=== PATIENT | female | born 1975 | race Caucasian/White ===

== ENCOUNTER 2018-11-28 12:35 | Inpatient (IN) | payer MEDICAID ==
[~2018-11-28] VITALS: Ht 167.6 cm; Wt 74.5 kg
[2018-11-28 13:09] VITALS: Ht 167.6 cm; Wt 74.5 kg
--- NOTE | 2018-11-28 13:29 | NUR ---
PT RECEIVED AWAKE AND ALERT, AMBULATORY FROM MAIN TRIAGE. UA CUP HAS BEEN PROVIDED BY BENCH MOLDER.
--- NOTE | 2018-11-28 14:00 | NUR ---
MSE BY DR. RODRIGUEZ.
[2018-11-28 14:21] LABS: BASOPHIL % 0.1 % (0-2); PLATELET COUNT 322 x10^3mcL (130-400); RED CELL DISTRIBUTION WIDTH 13.2 % (11.5-14.5)
[2018-11-28 14:33] LABS: CALCIUM 8.8 mg/dL (8.5-10.1); CARBON DIOXIDE 29.5 mmol/L (21-32); CHLORIDE SERUM 103 mmol/L (98-107); CREATININE SERUM 0.6 mg/dL (0.6-1.0); GFR1 > 60 mL/min; GLUCOSE SERUM 106 mg/dL (74-106); SODIUM SERUM 141 mmol/L (136-145)
--- NOTE | 2018-11-28 14:34 | NUR ---
PATIENT HAS BEEN MEDICATED. AND LABS SENT
[2018-11-28 14:37] LABS: ALKALINE PHOSPHATASE 69 U/L (46-116); ALT/SGPT 68 U/L (14-59); AST/SGOT 101 U/L (15-37); BILIRUBIN TOTAL 0.3 mg/dL (0.20-1.00); LIPASE 103 IU/L (73-393); TOTAL PROTEIN, SERUM 7.9 g/dL (6.4-8.2)
--- NOTE | 2018-11-28 15:21 | NUR ---
PT IS CURRENTLY LAYING ON THE BED, USING HER CELLPHONE. PATIENT IS NOW PENDING US. LABS NOTED. NS BOLUS CONTINOUS.
--- NOTE | 2018-11-28 15:28 | NUR ---
PT TO US
--- NOTE | 2018-11-28 15:58 | NUR ---
PATIENT IS NOW BACK FROM US. PATIENT IS PENDING ADMISSION FOR CHOLELITHIASIS AND ELEVATED LIVER ENZYME
--- NOTE | 2018-11-28 16:30 | NUR ---
VITALS REMAIN WNL. PATIENT REFUSING MORPHINE ADMINISTRATION
[2018-11-28 16:55] LABS: T3 TOTAL 1.13 ng/mL
[2018-11-28 16:56] LABS: FREE T4 0.97 ng/dL (0.76-1.46); FREE THYROXINE INDEX 2.8 ug/dL (1.4-4.5); T4(THYROXINE) 7.5 ug/dL (4.7-13.3)
--- NOTE | 2018-11-28 17:00 | NUR ---
RN REPORT GIVEN TO ZIYAD, RN OVER ON MED/SURG FLOOR. PATIENT REMAINS AWAKE AND ALERT, NO NAUSEA/VOMITING WHILE UNDER MY CARE. PATIENT'S IV REMAINS INTACT AND PATENT. PT HAS BEEN NPO WHILE UNDER MY CARE. PT HAS BEEN REFUSING ANY PAIN MEDICINE AFTER TORADOL ADMINISTRATION.
[2018-11-28 17:11] LABS: CHOLESTEROL/HDL RATIO 2.8; PHOSPHOROUS 3.8 mg/dL (2.5-4.9)
[2018-11-28 17:59] VITALS: BP 128/73
--- NOTE | 2018-11-28 18:01 | NUR ---
RECEIVED PT FROM ED VIA [employer]. ORIENTED PT TO ROOM AND SURROUNDINGS. IV NOTED TO LAC PATENT AND INTACT. MEDICATED PT WITH PRN PAIN AND ANTIEMETIC MEDICATION. INSTRUCTED PT ON THE USE OF CALL LIGHT FOR ASSISTANCE. BED IN LOWEST POSITION AND SIDE RAILS UPX2
--- NOTE | 2018-11-28 19:56 | NUR ---
COMPLAINED OF ABDOMINAL PAIN RATED AT 6/10 MEDICATED PRN. WILL CHECK EFFECTIVENESS.
[2018-11-28 20:00] VITALS: BP 112/61
--- NOTE | 2018-11-28 20:18 | NUR ---
PATIENT RECEIVED IN BED AWAKE,ALERT AND ORIENTED X4, GUYANESE SPEAKING BUT ABLE TO COMMUNICATE NEEDS WITH LITTLE CROATIAN AND GESTURING. COMPLAINT OF ABDOMINAL PAIN POINTED AT EPIGASTRIC AREA, RATE AT 6/10 MEDICATED PRN, MADE COMFORTABLE IN BED AND WILL MONITOR EFFECTIVENESS. DENIED N/V/D. IV SITE NO SIGN OF INFILTRATION. SAFETY PRECAUTIONS MAINTAINED. WILL CONTINUE TO MONITOR.
--- NOTE | 2018-11-28 20:56 | NUR ---
PAIN STATED PAIN TO EPIGASTRIC AREA IS SLOWLY SUBSIDING RATED AT 3/10. WILL CONTINUE TO MONITOR.
--- NOTE | 2018-11-28 21:11 | NUR ---
SCHEDULED MEDS ADMINISTERED PER ORDERED. PATIENT INFORMED ABOUT ITS PURPOSE AND ACTIONS PRIOR.
--- NOTE | 2018-11-28 22:23 | NUR ---
PATIENT TRANSFERRED TO ROOM 226A.
--- NOTE | 2018-11-29 00:05 | NUR ---
COMPLAINED OF EPIGASTRIC PAIN RATED AT 6/10 MEDICATED PRN.
--- NOTE | 2018-11-29 01:00 | NUR ---
CHECKED EFFECTIVENESS OF PAIN MEDS GIVEN, AWAKEN WHEN NAME CALLED, STATED PAIN AT 2/10 BEARABLE. IV SITE NO SIGN OF INFILTRATION. WILL CONTINUE TO MONITOR.
--- NOTE | 2018-11-29 03:00 | NUR ---
SLEEPING NO DISTRESS. WILL CONTINUE TO MONITOR.
[2018-11-29 05:45] VITALS: BP 102/61
--- NOTE | 2018-11-29 05:56 | NUR ---
COMPLAINED OF ABDOMINAL PAIN LOCATED AT EPIGASTRIC ARE, RATED AT 6/10 MEDICATED PRN.
--- NOTE | 2018-11-29 06:22 | NUR ---
PATIENT HAD A RESTFUL NIGHT, WAS MEDICATED X3 FOR COMPLAINT OF ABDOMINAL PAIN WITH RELIEF. COMPLIANT WITH NPO ORDER. IV SITE NO SIGN OF INFILTRATION, ASSISTED OOB TO THE BR VOIDED WITHOUT DIFF. SAFETY PRECAUTIONS OBSERVED AND MAINTAINED. WILL ENDORSE CONTINUITY OF CARE TO INCOMING NURSE.
[2018-11-29 06:42] LABS: BASOPHIL % 0.2 % (0-2); PLATELET COUNT 277 x10^3mcL (130-400); RED CELL DISTRIBUTION WIDTH 13.3 % (11.5-14.5)
[2018-11-29 06:45] LABS: microscopic required? NO
[2018-11-29 07:05] LABS: CALCIUM 8.4 mg/dL (8.5-10.1); CARBON DIOXIDE 26.2 mmol/L (21-32); CHLORIDE SERUM 107 mmol/L (98-107); CREATININE SERUM 0.7 mg/dL (0.6-1.0); GFR1 > 60 mL/min; GLUCOSE SERUM 102 mg/dL (74-106); POTASSIUM SERUM 4.1 mmol/L (3.5-5.1); SODIUM SERUM 142 mmol/L (136-145)
--- NOTE | 2018-11-29 07:36 | NUR ---
BEDSIDE HANDS OFF AND REPORT GIVEN TO INCOMING NURSE KRISTINE.
[2018-11-29 07:43] LABS: AMPHETAMINE QUAL UR NONE DETECTED (See below)
--- NOTE | 2018-11-29 07:50 | NUR ---
RECEIVED PATIENT RESTING IN BED. A/OX4. PATIENT C/O DIZZINESS WHEN OPENING EYES BUT STATES SHE DOES NOT FEEL DIZZY ANYMORE. DENIES PAIN AT THIS TIME. PATIENT ABLE TO AMBULATE INDEPENDENTLY, STEADY GAIT. NS IV INFUSING TO LAC AT 100 ML/HR, IV SITE CDI, NO ERYTHEMA, EDEMA OR PAIN AT SITE. INSTRUCTED PATIENT TO CALL FOR ASSISTANCE WHEN NEEDED, CALL LIGHT WITHIN REACH. BED IN LOW POSITION, SIDE RAILS X2, FOR SAFETY PRECAUTION. WILL CONTINUE TO MONITOR FOR CHANGES.
[2018-11-29 08:32] LABS: UA SPECIFIC GRAVITY >=1.030 (1.005-1.035); urine erythrocyte NEGATIVE (NEGATIVE)
[2018-11-29 10:02] VITALS: BP 109/71
--- NOTE | 2018-11-29 12:30 | NUR ---
PATIENT WENT DOWN TO OR. IV TO LAC SALINE LOCK, CDI AND PATENT.
--- NOTE | 2018-11-29 16:31 | NUR ---
PATIENT ARRIVED FROM OR VIA GURNEY. VITAL SIGNS STABLE; BP:122/77 HR: 82 O2: 99% RR:16 TEMP. 97.7. 4 INCISIONS NOTED TO ABDOMEN, 3 OF THE INCISION RANJANA, 1 INCISION WITH SUTURE AND COVERED WITH BANDAID. WILL CONTINUE TO MONITOR PATIENT.
--- NOTE | 2018-11-29 17:00 | NUR ---
PATIENT APPEARRED TO BE GASPING FOR AIR, PATIENT STATES TROUGHT FELT INFLAMMED DR MIRANDA NOTIFIED. DR MIRANDA ORDER FOR RT PROTOCOL. PATIENT OXYGEN INCREASED TO 4L, PATIENT FELT SOME RELIEF. WILL CONTINUE TO MONITOR. PATIENT OX IS 99% AT THIS TIME.
[2018-11-29 17:15] VITALS: BP 140/71
--- NOTE | 2018-11-29 18:42 | NUR ---
PATIENT C/O NAUSEA AND VOMITTING, MEDICATED PATIENT WITH ZOFRAN PER PROTOCOL. NO ACUTE CHANGES NOTED, PATIENT STABLE. NS IV TO LAC SALINE LOCK, CDI. NO ERYTHEMA, EDEMA, OR PAIN AT SITE. WILL ENDORSE REPORT TO NIGHT NURSE.
--- NOTE | 2018-11-29 19:45 | NUR ---
RECEIVED PT RESTING IN BED, ALERT AND ORIENTED X4, DENIES LUKE, DIZZINESS AT THIS TIME. REPORTS FEELING NAUSEOUS, ZOFRAN LAST GIVEN AT 1842. PT REPORTS ABD PAIN TO SX SITE, WILL MEDICATE PER ORDER; PT IS S/P LAP ESEQUIEL TODAY WITH X4 SM. SX INCISIONS NOTED TO ABD. X3 CLOSED WITH DERMABOND AND RANJANA, X1 CLOSED WITH SUTURES AND COVERED WITH BANDAID. PT IS MED/SURG, DENIES CHEST DISCOMFORT AT THIS TIME. FOUND PT ON 2L VIA NC, BREATHING IS E/U, PT DENIES SOB AT THIS TIME. IV NOTED TO LAC, INFUSING IVF ORDERED. IV IS PATENT AND INTACT. NO SWELLING, REDNESS NOTED TO AREA. ALL SAFETY AND COMFORT MEASURES MAINTAINED. CALL LIGHT AND PESONAL ITEMS IN REACH. WILL CONTINUE TO MONITOR.
--- NOTE | 2018-11-29 20:30 | NUR ---
PT ASSISTED TO RESTROOM, FIRST POST SURGICAL VOID. PT CONTINUING TO FEEL NAUSEOUS AND DIZZY AT THIS TIME. EMESIS BAG PROVIDED. DAUGHTERS AT BEDSIDE. WILL CONTINUE TO MONITOR.
[2018-11-29 20:44] VITALS: BP 124/68
--- NOTE | 2018-11-29 21:05 | NUR ---
PT MEDICATED WITH TORADOL FOR PAIN, RESTING COMFORTABLY IN BED AT THIS TIME. NC IN PL, IVF INFUSING PER MD ORDER. ALL SAFETY MEASURES MAINTAINED. CALL LIGHT IN REACH. WILL CONTINUE TO MONITOR.
--- NOTE | 2018-11-29 23:51 | NUR ---
PT RESTING COMFORTABLY AT THIS TIME. REPORTS PAIN HAS SUBSIDED TO 3/10 AT THIS TIME. NO DISTRESS NOTED. SAFETY AND COMFORT MEASURES MAINTAINED. CALL LIGHT IN REACH. WILL CONTINUE TO MONITOR.
[2018-11-30 05:09] VITALS: BP 102/61
--- NOTE | 2018-11-30 06:39 | NUR ---
PT RESTED INTERMITTENTLY DURING THE NIGHT, ASSISTED WITH AMBULATION TO AND FROM RESTROOM TO BED, PT TOLERATING OK AT THIS TIME. PT CONTINUES TO HAVE MILD-MODERATE PAIN AND CONTINUING TO FEEL NAUSEOUS. SHE REPORTS BURPING, BUT NOT PASSING GAS AT THIS TIME. IVF CONTINUING TO INFUSE PER MD ORDER, IV SITE REMAINS PATENT AND INTACT. ABD SX INCISIONS REMAIN INTACT. ALL SAFETY AND COMFORT MEASURES MAINTAINED. CALL LIGHT IN REACH. WILL ENDORSE CARE TO AM NURSE AND CONTINUE TO MONITOR.
--- NOTE | 2018-11-30 07:26 | NUR ---
RECEIVED REPORT FROM BRUCE ZAMORA. PT RESTING COMFORTABLY IN BED. IV TO LAC IS PATENT AND INTACT. NO REDNESS OR PAIN. PT ON ROOM AIR. NO C/O SOB AND NO DISTRESS NOTED. PT AMBULATED TO THE RESTROOM WITH MINIMAL ASSISTANCE GETTING OUT OF BED DUE TO PAIN. NO C/O NAUSEA, WEAKNESS, OR ANY PAIN OTHER THAN INCISIONAL. ALL QUESTIONS AND CONCERNS ADDRESSED.
[2018-11-30 07:37] LABS: CALCIUM 8.7 mg/dL (8.5-10.1); CARBON DIOXIDE 26.6 mmol/L (21-32); CHLORIDE SERUM 105 mmol/L (98-107); CREATININE SERUM 0.6 mg/dL (0.6-1.0); GFR1 > 60 mL/min; GLUCOSE SERUM 89 mg/dL (74-106); POTASSIUM SERUM 3.7 mmol/L (3.5-5.1); SODIUM SERUM 137 mmol/L (136-145)
[2018-11-30 08:02] LABS: BASOPHIL % 0.2 % (0-2); PLATELET COUNT 284 x10^3mcL (130-400); RED CELL DISTRIBUTION WIDTH 13.3 % (11.5-14.5)
--- NOTE | 2018-11-30 08:51 | NUR ---
IN TO SEE PATIENT AND ADMINISTER MEDICATION. PT RESTING IN BED C/O INCISIONAL PAIN. NORCO ADMINSITERED WITH MORNING MEDICATION (SEE eMAR). WILL REASSESS.
[2018-11-30 09:37] VITALS: BP 107/59
--- NOTE | 2018-11-30 11:28 | NUR ---
IN TO SEE PATIENT AND ASSESS PAIN. PT C/O CHEST PAIN RADIATING TO LT SHOULDER. RESOURCE DEVELOPMENT DIRECTOR KEISHA MADE AWARE. CXR, LOVENOX, SIMETHICONE AND PT ORDERED.
--- NOTE | 2018-11-30 12:54 | NUR ---
IN TO ADMINISTER NORCO FOR PAIN 5/10. WILL REASSESS.
[2018-11-30 13:01] VITALS: BP 105/64
--- NOTE | 2018-11-30 17:16 | NUR ---
IN TO ADMINISTER MEDICATION (SEE eMAR). PHYSICAL THERAPY ALSO IN TO SEE PATIENT.
[2018-11-30 17:32] VITALS: BP 98/49
--- NOTE | 2018-11-30 18:04 | NUR ---
SPOKE WITH MARKET RESEARCHER KEISHA ABOUT PTS CONTINUED PAIN AFTER NORCO AND TORADOL (SEE eMAR). KEISHA ORDERED MORPHINE 1MG IVP Q6HP.
--- NOTE | 2018-11-30 19:40 | NUR ---
RECEIVED PT AWAKE, ALERT AND ORIENTED X4, DENIES LUKE, DIZZINESS AT THIS TIME. NO ACUTE DISTRESS NOTED. FAMILY AT BEDSIDE. PT REPORTS SLIGHT DISCOMFORT TO ABD AREA, RUQ/EPIGASTRIC AREA. PT LAST MEDICATED WITH MORPHINE PER EMAR AT 1813. PT REPORTS PASSING GAS AND BURPING, SHE REPORTS MINIMAL INTAKE TODAY. DENIED ANY VOMITING BUT REPORTS FEELING NAUSEOUS AT TIMES. HYPOACTIVE BOWEL SOUNDS X4 QUADRANTS NOTED, TENDERNESS TO ABD AREA. SURGICAL INCISIONS X4 APPEAR C/D/I. PT CONTINUES TO HAVE MODERATE TO SEVERE PAIN, MEDICATING PRN ORDERED. ENCOURAGING AMBULATION TO IMPROVE GI MOTILITY. PT VERBALIZED UNDERSTANDING. FOUND PT ON 1L NC, BREAHTING E/U, BUT SHALLOW, DENIES SOB AT THIS TIME. INCENTIVE SPIROMETER AT BEDSIDE. ENCOURAGED USE AND IMPORTANCE, PT DEMONSTRATED. TELE MONITOR IN PL, SHOWING NSR. NO C/O CHEST PAIN AT THIS TIME. IV TO LAC INFUSING IVF ORDERED. NO SWELLING, PAIN OR REDNESS TO AREA. ALL SAFETY AND COMFORT MEASURES MAINTAINED. B/L SCD'S IN PL. CALL LIGHT AND PERSONAL ITEMS IN REACH. WILL CONTINUE TO MONITOR.
--- NOTE | 2018-11-30 19:53 | NUR ---
REPORT GIVEN TO BRUCE ZAMORA. PT RESTING COMFORTABLY IN BED WITH FAMILY AT BEDSIDE. ALL NEEDS MET. ALL QUESTIONS AND CONCERNS ADDRESSED. ALL CARES ENDORSED.
[2018-11-30 20:32] VITALS: BP 115/64
--- NOTE | 2018-11-30 21:05 | NUR ---
PT AMBULATED ONE SIDE OF THE HALLS WITH ASSIST, STEADY, SLOW GAIT NOTED. TOLERATED WELL.
--- NOTE | 2018-12-01 00:46 | NUR ---
PT RESTING WITH EYES CLOSED, EASILY AROUSABLE. PT REPORTS ABD PAIN 2/10 AT THIS TIME. NO DISTRESS NOTED. BREATHING E/U. ALL SAFETY MEASURES MAINTAINED. CALL LIGHT IN REACH. WILL CONTINUE TO MONITOR.
[2018-12-01 05:23] VITALS: BP 112/60
--- NOTE | 2018-12-01 06:57 | NUR ---
NO DISTRESS OR ACUTE CHANGES IN CONDITION NOTED DURING THE NIGHT. PT MEDICATED X1 WITH TORADOL FOR PAIN. SHE REPORTED SHE CONTINUED TO FEEL DISCOMFORT TO EPIGASTRIC AREA BUT TOLERABLE AND PAIN HAS SUBSIDED. IV REMAINS PATENT AND INTACT, INFUSING IVF ORDERED. ALL SAFETY MEASURES MAINTAINED. CALL LIGHT IN REACH. WILL ENDORSE CARE TO AM NURSE.
[2018-12-01 08:03] VITALS: BP 127/80
--- NOTE | 2018-12-01 08:50 | NUR ---
PATIENT IN BED, W COMPLAINTS OF PAIN IN R ABD CHEST. PATIENT POST-OP LAP-ESEQUIEL X2 DAYS, INCISIONS TO ABD RANJANA, CLEAN DRY. INFORMED PATIENT THAT POST OP AND PROCEDURE CAUSES BUILD-UP OF GAS AND CONSTIPATION, AND PAIN MEDICATIONS WILL MAKE CONSTIPATION WORSE. DAUGHTER ON CELL, EXPLAINED INSTRUCTIONS TO DAUGHTER OVER PHONE. PATIENT W PT AYLEEN & GLENDY CAVANAUGH TO RESTROOM. PT JENIFFER ABBASI.
[2018-12-01 12:24] VITALS: BP 130/79
--- NOTE | 2018-12-01 13:00 | NUR ---
PATIENT CONTINUES TO HAVE PAIN IN R UPPER QUADRANT, RADIATES TO CHEST. FAMILY AT BEDSIDE. EXPLAINED TO FAMILY AND PATIENT THAT PAIN IS RELATED TO POST OP COMPLICATIONS. INFORMED PATIENT AND FAMILY THAT PATIENT NEEDS TO MOVE, AMBULATE, COUGH & DB, USE INCENTIVE SPIROMETER TO PREVENT PNA AND MOVE BOWELS. VINOD MOTRIN PO ADMINISTERED. WILL PRINT OUT PATIENT EDUCATION PAMPLETS IN APPROPRIATE LANGUAGE. INFORMED PATIENT AND FAMILY TO CALL FOR ASSISTANCE.
[2018-12-01 16:12] VITALS: BP 94/44
[2018-12-01 17:13] VITALS: BP 118/66
--- NOTE | 2018-12-01 17:55 | NUR ---
PATIENT IN BED, USING INCENTIVE SPIROMETER. PATIENT ABD PAIN RETURNS, ADMINISTERED PRN NORCO PO. ABLE TO PASS FLATUS, NO BM. WILL CONTINUE TO MONITOR FURTHER. CALL LIGHT IN REACH, FAMILY AT BEDSIDE.
--- NOTE | 2018-12-01 18:35 | NUR ---
PATIENT IN BED, NO COMPLAINTS OF PAIN. PRN NORCO PO EFFECTIVE. FAMILY AT BEDSIDE. NO SOB, NO FURTHER SIGNS OF DISTRESS. ABDOMINAL INCISIONS MAMMOGRAPHY TECHNOLOGIST AND CLEAN. PATIENT ON O2 VIA NC @ 2 [place] [id number] BUT NO BM. WILL ENDORSE TO ONCOMING NURSE. CALL LIGHT IN REACH.
--- NOTE | 2018-12-01 20:21 | NUR ---
RECEIVED PT FROM DAYSNCFT NURSE. PT IS A/O X4. PT ON TELE#21. LUNG SOUNDS CTA. ON 1L O2 VIA NASAL CANNULA. BOWEL SOUNDS ACTIVE IN ALL QUADRANTS. PT HAS 4 SX INCISIONS. 3 WITH DERMABOND, 1 WITH BANDAGE, CDI. PT'S IV SITE IS INTACT, RUNNING D5 1/2 NS AT 30 CC/HR ON LAC. WILL CONTINUE TO MONITOR.
--- NOTE | 2018-12-01 20:35 | NUR ---
ICE CHIPS GIVEN PER PT'S REQUEST. PT AMBULATING IN HALLWAYS, ON 1L NC, NO RESP DISTRESS OBSERVED. STEADY GAIT NOTED. DAUGHTERS ASSISTING PT. WILL CONT TO MONITOR.
--- NOTE | 2018-12-01 20:55 | NUR ---
PT RETURNED BACK TO BED WITHOUT INCIDENT. PT TOLERATED AMBULATING FAIRLY WITH MILD ABD PAIN. PT RECEIVED BREATHING TX. PER RT, PT WAS FEELING SOB, AND PLACED PT ON 2L NC, 02 SAT-96%. NO ACUTE DISTRESS OBSERVED. DAUGHTERS AT BEDSIDE. WILL CONT TO MONITOR.
[2018-12-01 21:05] VITALS: BP 109/68
[2018-12-02 05:37] VITALS: BP 103/60
--- NOTE | 2018-12-02 06:29 | NUR ---
PT SEEN SLEEPING IN BED. BREATHING IS EVEN AND UNLABORED. NO ACUTE DISTRESS NOTED AT THIS TIME. WILL ENDORSE CONTINUITY OF CARE TO DAYSHIFT NURSE.
--- NOTE | 2018-12-02 07:20 | NUR ---
PT C/O 03/19 ABD PAIN, PRN NORCO GIVEN ORDERED. NO ACUTE DISTRESS NOTED. CONTINUITY OF CARE ENDORSED TO AM NURSE.
--- NOTE | 2018-12-02 07:21 | NUR ---
ENDORSED CARE TO MESSI-SERA AND ANTONIO.
[2018-12-02 07:31] VITALS: BP 109/67
--- NOTE | 2018-12-02 07:48 | NUR ---
PATIENT IN BED RESTING. AAO/X3. STATES MODERATE PAIN IN R ABD. PRN NORCO PO ADMINISTERED. PATIENT TOLERATED. PATIENT ASSISTED TO BR, VOID, NO BM. LINDA PEREZ ENTERED ROOM SPOKE W PATIENT. PLAN TO DISCHARGE HOME TODAY W PAIN MEDICATION PRESCRIPTION. NOTIFIED THAT PATIENT HAS PASSED FLATUS. CALL LIGHT IN REACH, WILL AWAIT DISCHARGE ORDERS.
[2018-12-02] MEDS ORDERED: HEALTH MART IB200 MG PO (08:49)
--- NOTE | 2018-12-02 09:29 | NUR ---
PATIENT WITH PT JENIFFER ABBASI. PATIENT ABLE TO AMBULATE W FWW TO 2NORTH.
--- NOTE | 2018-12-02 12:15 | NUR ---
PATIENT ASSISTED TO BATHROOM, VOID W NO BM. PASSING FLATUS. DENIES PAIN, NO SIGNS OF SOB. PATIENT RETURNED TO BED W ASSIST. CALL LIGHT IN REACH, BED IN LOWEST POSITION.
[2018-12-02 12:29] VITALS: BP 104/64
--- NOTE | 2018-12-02 13:26 | NUR ---
PATIENT IN BED RESTING. ON PHONE WITH DAUGHTERS. INFORMED PATIENT AND DAUGHTERS THAT PATIENT IS CLEARED TO GO HOME. DAUGHTERS STATED THAT THEY WILL BE OVER TO THE HOSPITAL TO PICK PATIENT UP. PATIENT COMPLAINS OF NAUSEA D/T DRINKING HOME PRUNE JUICE, ADVISED PATIENT TO STOP DRINKING PRUNE JUICE & PRN IVP ZOFRAN ADMINISTERED. WILL FOLLOW UP W DISCHARGE PLAN, CALL LIGHT IN REACH, BED IN LOWEST POSITION.
[2018-12-02 13:31] VITALS: BP 103/60
--- NOTE | 2018-12-02 15:09 | NUR ---
PATIENT IN BED, DAUGHTERS AT BEDSIDE. INSTRUCTED PATIENT & FAMILY ABOUT PLAN OF CARE. DISCHARGE PACKET GIVEN TO PATIENT AND FAMILY. KATHY PEREZ BEST [employer] WRITE DOCTORS NOTE FOR PATIENT WORKPLACE PER REQUEST. TELE MONITOR RETURNED TO [facility]. IV CATHETER REMOVED, CATHETER INTACT. ID BANDS REMOVED, PATIENT TO BE ESCORTED W GLENDY CAVANAUGH AND SNEHAL VIA WHEELCHAIR DOWNSTAIRS.
== END 2018-12-02 15:40 | disposition home or self-care (01) | DRG 263 ==
LOC: ED 12:35 → DU 16:12 → MU 16:12 → DU 11-30 11:27
PROVIDERS: Emergency Medicine; Surgery; ADMIT Internal Medicine
PROC: 0FT44ZZ Resection of Gallbladder, Percutaneous Endoscopic Approach (ICD-10-PCS; principal; 2018-11-29 12:00)
DX: K80.20 Calculus of gallbladder without cholecystitis without obstruction (principal); K65.9 Peritonitis, unspecified; R73.03 Prediabetes; R74.0 Nonspecific elevation of levels of transaminase and lactic acid dehydrogenase [LDH]; Z68.29 Body mass index [BMI] 29.0-29.9, adult
CPT/HCPCS: 84439; 85378; 90658; 97112-GP; 97116-GP; 97530-GP; J0330; J0690; J1170; J1650; J1885; J1956; J2270; J2405; J2704; J2765; J3010; J3490; J7030; J7040; J7120; J7620; Q0092